=== PATIENT | female | born 1985 | race African-American/Black ===

== ENCOUNTER 2021-05-10 09:41 | Day surgery (SDC) | payer OTHER ==
[2021-05-09 14:48] VITALS: BMI 44.1
[2021-05-10] MEDS ORDERED: KETAMINE HCL 500 MG/10 ML VIAL ONE (11:34)
[2021-05-10 12:18] VITALS: TEMP 97.5
[2021-05-10 13:32] VITALS: BP 105/67
[2021-05-10 13:34] VITALS: PULSE 61
== END 2021-05-10 13:15 ==
LOC: FECT 09:41
PROVIDERS: ATTEND Psychiatry & Neurology Psychiatry
PROC: GZB4ZZZ Other Electroconvulsive Therapy (ICD-10-PCS; principal; 2021-05-10 11:00)
DX: F25.9 Schizoaffective disorder, unspecified (principal)
CPT/HCPCS: 84703; 90870; 94760

== ENCOUNTER 2021-05-11 06:24 | Day surgery (SDC) | payer OTHER ==
[2021-05-10 11:36] VITALS: BMI 44.1
[2021-05-11] MEDS ORDERED: KETAMINE HCL 500 MG/10 ML VIAL ONE (08:03)
[2021-05-11 10:20] VITALS: TEMP 98.4
[2021-05-11 10:21] VITALS: BP 137/89; PULSE 69
[2021-05-12 18:07] LABS: SARS-CoV-2 NAA Not Detected (Not Detected)
== END 2021-05-11 09:30 | disposition home or self-care (01) ==
LOC: FECT 06:24
PROVIDERS: ATTEND Psychiatry & Neurology Psychiatry
PROC: GZB4ZZZ Other Electroconvulsive Therapy (ICD-10-PCS; principal; 2021-05-11 08:30)
DX: F25.0 Schizoaffective disorder, bipolar type (principal)
CPT/HCPCS: 90870; 94760; C9803; U0003; U0005

== ENCOUNTER 2021-05-14 08:33 | Day surgery (SDC) | payer OTHER ==
[2021-05-10 11:58] VITALS: BMI 44.1
[2021-05-14] MEDS ORDERED: KETAMINE HCL 500 MG/10 ML VIAL ONE (09:13)
[2021-05-14 10:02] VITALS: TEMP 97.8
[2021-05-14 10:59] VITALS: BP 109/68; PULSE 64
[2021-05-15 11:12] LABS: SARS-CoV-2 NAA Not Detected (Not Detected)
== END 2021-05-14 11:00 ==
LOC: FECT 08:33
PROVIDERS: ATTEND Psychiatry & Neurology Psychiatry
PROC: GZB4ZZZ Other Electroconvulsive Therapy (ICD-10-PCS; principal; 2021-05-14 10:00)
DX: F25.0 Schizoaffective disorder, bipolar type (principal)
CPT/HCPCS: 84703; 90870; 94760; C9803; U0003; U0005

== ENCOUNTER 2021-05-17 08:14 | Day surgery (SDC) | payer OTHER ==
[2021-05-11 08:41] VITALS: BMI 44.1
[2021-05-17] MEDS ORDERED: KETAMINE HCL 500 MG/10 ML VIAL ONE (09:41)
[2021-05-17 10:59] VITALS: TEMP 98.2
[2021-05-17 11:19] VITALS: BP 122/74; PULSE 61
== END 2021-05-17 11:21 | disposition home or self-care (01) ==
LOC: FECT 08:14
PROVIDERS: ATTEND Psychiatry & Neurology Psychiatry
PROC: GZB4ZZZ Other Electroconvulsive Therapy (ICD-10-PCS; principal; 2021-05-17 09:30)
DX: F25.9 Schizoaffective disorder, unspecified (principal)
CPT/HCPCS: 90870; 94760

== ENCOUNTER 2021-05-18 07:00 | Day surgery (SDC) | payer OTHER ==
[2021-05-14 08:15] VITALS: BMI 44.1
[2021-05-18] MEDS ORDERED: KETAMINE HCL 500 MG/10 ML VIAL ONE (08:15)
[2021-05-18 08:50] VITALS: TEMP 98.6
[2021-05-18 09:36] VITALS: BP 136/90; PULSE 62
[2021-05-19 16:07] LABS: SARS-CoV-2 NAA Not Detected (Not Detected)
== END 2021-05-18 09:50 ==
LOC: FECT 07:00
PROVIDERS: ATTEND Psychiatry & Neurology Psychiatry
PROC: GZB4ZZZ Other Electroconvulsive Therapy (ICD-10-PCS; principal; 2021-05-18 08:30)
DX: F25.9 Schizoaffective disorder, unspecified (principal)
CPT/HCPCS: 81025; 90870; 94760; C9803; U0003; U0005

== ENCOUNTER 2021-05-21 08:45 | Day surgery (SDC) | payer OTHER ==
[2021-05-15 15:29] VITALS: BMI 44.1
[2021-05-21] MEDS ORDERED: KETAMINE HCL 500 MG/10 ML VIAL ONE (10:11)
[2021-05-21 11:35] VITALS: TEMP 98.2
[2021-05-21 11:51] VITALS: BP 118/76; PULSE 69
== END 2021-05-21 12:00 ==
LOC: FECT 08:45
PROVIDERS: ATTEND Psychiatry & Neurology Psychiatry
PROC: GZB4ZZZ Other Electroconvulsive Therapy (ICD-10-PCS; principal; 2021-05-21 09:30)
DX: F25.9 Schizoaffective disorder, unspecified (principal)
CPT/HCPCS: 90870; 94760

== ENCOUNTER 2021-05-24 07:38 | Day surgery (SDC) | payer OTHER ==
[2021-05-22 18:38] VITALS: BMI 44.1
[2021-05-24] MEDS ORDERED: KETAMINE HCL 500 MG/10 ML VIAL ONE (08:51)
[2021-05-24 09:58] VITALS: TEMP 97.7
[2021-05-24 10:55] VITALS: BP 117/73; PULSE 72
== END 2021-05-24 11:25 ==
LOC: FECT 07:38
PROVIDERS: ATTEND Psychiatry & Neurology Psychiatry
PROC: GZB4ZZZ Other Electroconvulsive Therapy (ICD-10-PCS; principal; 2021-05-24 09:00)
DX: F25.9 Schizoaffective disorder, unspecified (principal)
CPT/HCPCS: 84703; 90870; 94760

== ENCOUNTER 2021-05-25 06:23 | Day surgery (SDC) | payer OTHER ==
[2021-05-23 07:41] VITALS: BMI 44.1
[2021-05-25] MEDS ORDERED: KETAMINE HCL 500 MG/10 ML VIAL ONE (07:30)
[2021-05-25] MEDS ORDERED: KETOROLAC TROMETHAMINE 30 MG/1 ML VIAL ONE (07:34)
[2021-05-25] MEDS ORDERED: ONDANSETRON 4 MG/2 ML VIAL ONE (07:34)
[2021-05-25] MEDS ORDERED: LIDOCAINE HCL/PF 2% SDV 5ML VIAL ONE (07:34)
[2021-05-25] MEDS ORDERED: SUCCINYLCHOLINE CHLORIDE 200 MG/10 ML SYRINGE ONE (07:35)
[2021-05-25] MEDS ORDERED: PROPOFOL 20 ML ONE (07:35)
[2021-05-25] MEDS ORDERED: ACETAMINOPHEN 325 MG TABLET (FP) PO PRN (08:33)
[2021-05-25] MEDS ORDERED: ONDANSETRON 4 MG/2 ML VIAL IVPUSH PRN (08:33)
[2021-05-25 08:37] VITALS: PULSE 79; TEMP 98.1
[2021-05-25] MEDS ORDERED: LACTATED RINGERS SOLUTION 1,000 ML IV SCH (08:45)
[2021-05-25 09:03] VITALS: BP 111/70
[2021-05-26 11:12] LABS: SARS-CoV-2 NAA Not Detected (Not Detected)
== END 2021-05-25 09:03 | disposition home or self-care (01) ==
LOC: FECT 06:23
PROVIDERS: ATTEND Psychiatry & Neurology Psychiatry
PROC: GZB4ZZZ Other Electroconvulsive Therapy (ICD-10-PCS; principal; 2021-05-25 07:30)
DX: F25.9 Schizoaffective disorder, unspecified (principal)
CPT/HCPCS: 90870; 94760; C9803; U0003; U0005

== ENCOUNTER 2021-05-28 08:28 | Day surgery (SDC) | payer OTHER ==
[2021-05-28 08:58] VITALS: BMI 44.1
[2021-05-28] MEDS ORDERED: KETAMINE HCL 500 MG/10 ML VIAL ONE (09:43)
[2021-05-28 10:25] VITALS: TEMP 98.7
[2021-05-28 11:03] VITALS: BP 121/77; PULSE 66
[2021-05-29 13:12] LABS: SARS-CoV-2 NAA Not Detected (Not Detected)
== END 2021-05-28 11:30 ==
LOC: FECT 08:28
PROVIDERS: ATTEND Psychiatry & Neurology Psychiatry
PROC: GZB4ZZZ Other Electroconvulsive Therapy (ICD-10-PCS; principal; 2021-05-28 10:30)
DX: F25.0 Schizoaffective disorder, bipolar type (principal)
CPT/HCPCS: 84703; 90870; 94760; C9803; U0003; U0005

== ENCOUNTER 2021-05-31 09:04 | Day surgery (SDC) | payer OTHER ==
[2021-05-29 07:29] VITALS: BMI 44.1
[2021-05-31] MEDS ORDERED: KETAMINE HCL 200 MG/20 ML VIAL ONE (10:25)
[2021-05-31 12:35] VITALS: BP 112/69; PULSE 69; TEMP 98
== END 2021-05-31 12:30 ==
LOC: FECT 09:04
PROVIDERS: ATTEND Psychiatry & Neurology Psychiatry
PROC: GZB4ZZZ Other Electroconvulsive Therapy (ICD-10-PCS; principal; 2021-05-31 10:30)
DX: F31.9 Bipolar disorder, unspecified (principal)
CPT/HCPCS: 90870; 94760

== ENCOUNTER 2021-06-01 06:29 | Day surgery (SDC) | payer OTHER ==
[2021-05-29 07:34] VITALS: BMI 44.1
[2021-06-01] MEDS ORDERED: KETAMINE HCL 500 MG/10 ML VIAL ONE (08:03)
[2021-06-01 08:27] VITALS: TEMP 97.7
[2021-06-01 09:25] VITALS: BP 115/76; PULSE 62
[2021-06-02 16:11] LABS: SARS-CoV-2 NAA Not Detected (Not Detected)
== END 2021-06-01 09:45 | disposition home or self-care (01) ==
LOC: FECT 06:29
PROVIDERS: ATTEND Psychiatry & Neurology Psychiatry
PROC: GZB4ZZZ Other Electroconvulsive Therapy (ICD-10-PCS; principal; 2021-06-01 08:00)
DX: F25.9 Schizoaffective disorder, unspecified (principal)
CPT/HCPCS: 90870; 94760; C9803; U0003; U0005

== ENCOUNTER 2021-06-05 05:55 | Day surgery (SDC) | payer OTHER ==
[2021-06-05 07:18] VITALS: BMI 44.1
[2021-06-05] MEDS ORDERED: KETAMINE HCL 500 MG/10 ML VIAL ONE (07:43)
[2021-06-05 09:08] VITALS: TEMP 97.8
[2021-06-05 09:10] VITALS: BP 112/74; PULSE 61
[2021-06-06 10:08] LABS: SARS-CoV-2 NAA Not Detected (Not Detected)
== END 2021-06-05 10:15 ==
LOC: FECT 05:55
PROVIDERS: ATTEND Psychiatry & Neurology Psychiatry
PROC: GZB4ZZZ Other Electroconvulsive Therapy (ICD-10-PCS; principal; 2021-06-05 07:57)
DX: F25.0 Schizoaffective disorder, bipolar type (principal)
CPT/HCPCS: 81025; 90870; 94760; C9803; U0003; U0005

== ENCOUNTER 2021-06-07 05:48 | Day surgery (SDC) | payer OTHER ==
[2021-06-07 06:51] VITALS: BMI 44.1
[2021-06-07] MEDS ORDERED: KETAMINE HCL 500 MG/10 ML VIAL ONE (07:38)
[2021-06-07 08:50] VITALS: BP 119/72; PULSE 80; TEMP 97.6
== END 2021-06-07 09:50 ==
LOC: FECT 05:48
PROVIDERS: ATTEND Psychiatry & Neurology Psychiatry
PROC: GZB4ZZZ Other Electroconvulsive Therapy (ICD-10-PCS; principal; 2021-06-07 08:05)
DX: F25.0 Schizoaffective disorder, bipolar type (principal)
CPT/HCPCS: 90870; 94760

== ENCOUNTER 2021-06-11 08:07 | Day surgery (SDC) | payer OTHER ==
[2021-06-05 16:39] VITALS: BMI 33.6
[2021-06-11] MEDS ORDERED: SUCCINYLCHOLINE CHLORIDE 200 MG/10 ML SYRINGE ONE (09:31)
[2021-06-11] MEDS ORDERED: KETAMINE HCL 500 MG/10 ML VIAL ONE (09:33)
[2021-06-11 10:48] VITALS: TEMP 98.1
[2021-06-11 11:31] VITALS: BP 110/72; PULSE 78
[2021-06-12 12:09] LABS: SARS-CoV-2 NAA Not Detected (Not Detected)
== END 2021-06-11 11:41 | disposition home or self-care (01) ==
LOC: FECT 08:07
PROVIDERS: ATTEND Psychiatry & Neurology Psychiatry
PROC: GZB4ZZZ Other Electroconvulsive Therapy (ICD-10-PCS; principal; 2021-06-11 09:47)
DX: F25.0 Schizoaffective disorder, bipolar type (principal)
CPT/HCPCS: 84703; 90870; 94760; C9803; U0003; U0005

== ENCOUNTER 2021-06-14 08:19 | Day surgery (SDC) | payer OTHER ==
[2021-06-08 17:23] VITALS: BMI 44.1
[2021-06-14 08:39] VITALS: TEMP 97.2
[2021-06-14] MEDS ORDERED: KETOROLAC TROMETHAMINE 30 MG/1 ML VIAL ONE (09:37)
[2021-06-14] MEDS ORDERED: ONDANSETRON 4 MG/2 ML VIAL ONE (09:42)
[2021-06-14] MEDS ORDERED: KETAMINE HCL 500 MG/10 ML VIAL ONE (10:11)
[2021-06-14 11:22] VITALS: BP 110/71; PULSE 60
[2021-06-14] MEDS ORDERED: ACETAMINOPHEN 325 MG TABLET (FP) PO PRN (12:00)
[2021-06-15 13:08] LABS: SARS-CoV-2 NAA Not Detected (Not Detected)
== END 2021-06-14 11:45 ==
LOC: FECT 08:19
PROVIDERS: ATTEND Psychiatry & Neurology Psychiatry
PROC: GZB4ZZZ Other Electroconvulsive Therapy (ICD-10-PCS; principal; 2021-06-14 10:00)
DX: F25.9 Schizoaffective disorder, unspecified (principal)
CPT/HCPCS: 90870; 94760; C9803; U0003; U0005

== ENCOUNTER 2021-06-15 06:00 | Day surgery (SDC) | payer OTHER ==
[2021-06-14 09:46] VITALS: BMI 44.1
[2021-06-15] MEDS ORDERED: KETAMINE HCL 500 MG/10 ML VIAL ONE (07:22)
[2021-06-15 08:42] VITALS: TEMP 97.7
[2021-06-15 08:59] VITALS: BP 122/84; PULSE 69
== END 2021-06-15 09:05 | disposition home or self-care (01) ==
LOC: FECT 06:00
PROVIDERS: ATTEND Psychiatry & Neurology Psychiatry
PROC: GZB4ZZZ Other Electroconvulsive Therapy (ICD-10-PCS; principal; 2021-06-15 07:37)
DX: F25.9 Schizoaffective disorder, unspecified (principal)
CPT/HCPCS: 81025; 90870; 94760

== ENCOUNTER 2021-06-18 07:28 | Day surgery (SDC) | payer OTHER ==
[2021-06-18 08:35] VITALS: BMI 43.3
[2021-06-18] MEDS ORDERED: KETAMINE HCL 500 MG/10 ML VIAL ONE (09:19)
[2021-06-18 10:17] VITALS: TEMP 98.6
[2021-06-18 10:34] VITALS: BP 120/85; PULSE 81
[2021-06-19 13:08] LABS: SARS-CoV-2 NAA Not Detected (Not Detected)
== END 2021-06-18 10:37 | disposition home or self-care (01) ==
LOC: FECT 07:28
PROVIDERS: ATTEND Psychiatry & Neurology Psychiatry
PROC: GZB4ZZZ Other Electroconvulsive Therapy (ICD-10-PCS; principal; 2021-06-18 09:35)
DX: F25.0 Schizoaffective disorder, bipolar type (principal)
CPT/HCPCS: 84703; 90870; 94760; C9803; U0003; U0005

== ENCOUNTER 2021-06-21 08:14 | Day surgery (SDC) | payer OTHER ==
[2021-06-19 17:44] VITALS: BMI 43.2
[2021-06-21] MEDS ORDERED: KETAMINE HCL 500 MG/10 ML VIAL ONE (09:12)
[2021-06-21] MEDS ORDERED: ONDANSETRON 4 MG/2 ML VIAL ONE (09:18)
[2021-06-21] MEDS ORDERED: KETOROLAC TROMETHAMINE 30 MG/1 ML VIAL ONE (09:18)
[2021-06-21] MEDS ORDERED: LIDOCAINE HCL/PF 2% SDV 5ML VIAL ONE (09:27)
[2021-06-21 11:48] VITALS: BP 117/71; PULSE 63; TEMP 97.8
== END 2021-06-21 11:20 | disposition home or self-care (01) ==
LOC: FECT 08:14
PROVIDERS: ATTEND Psychiatry & Neurology Psychiatry
PROC: GZB4ZZZ Other Electroconvulsive Therapy (ICD-10-PCS; principal; 2021-06-21 09:30)
DX: F25.9 Schizoaffective disorder, unspecified (principal)
CPT/HCPCS: 84703; 90870; 94760

== ENCOUNTER 2021-06-22 06:12 | Day surgery (SDC) | payer OTHER ==
[2021-06-21 07:07] VITALS: BMI 43.2
[2021-06-22] MEDS ORDERED: KETAMINE HCL 500 MG/10 ML VIAL ONE (08:12)
[2021-06-22] MEDS ORDERED: GLYCOPYRROLATE 0.2 MG/1 ML VIAL ONE (09:00)
[2021-06-22] MEDS ORDERED: LACTATED RINGERS SOLUTION 1,000 ML IV SCH (09:30)
[2021-06-22 10:16] VITALS: BP 118/80; PULSE 79; TEMP 98
[2021-06-23 18:08] LABS: SARS-CoV-2 NAA Not Detected (Not Detected)
== END 2021-06-22 09:45 ==
LOC: FECT 06:12
PROVIDERS: ATTEND Psychiatry & Neurology Psychiatry
PROC: GZB4ZZZ Other Electroconvulsive Therapy (ICD-10-PCS; principal; 2021-06-22 08:28)
DX: F25.9 Schizoaffective disorder, unspecified (principal)
CPT/HCPCS: 90870; 94760; C9803; U0003; U0005

== ENCOUNTER 2021-06-25 08:42 | Day surgery (SDC) | payer OTHER ==
[2021-06-21 07:11] VITALS: BMI 43.2
[2021-06-25 09:32] VITALS: TEMP 98.2
[2021-06-25] MEDS ORDERED: KETAMINE HCL 500 MG/10 ML VIAL ONE (10:33)
[2021-06-25 11:56] VITALS: BP 120/89; PULSE 65
[2021-06-26 14:09] LABS: SARS-CoV-2 NAA Not Detected (Not Detected)
== END 2021-06-25 11:55 ==
LOC: FECT 08:42
PROVIDERS: ATTEND Psychiatry & Neurology Psychiatry
PROC: GZB4ZZZ Other Electroconvulsive Therapy (ICD-10-PCS; principal; 2021-06-25 10:38)
DX: F25.0 Schizoaffective disorder, bipolar type (principal)
CPT/HCPCS: 84703; 90870; 94760; C9803; U0003; U0005

== ENCOUNTER 2021-06-28 08:57 | Day surgery (SDC) | payer OTHER ==
[2021-06-22 15:57] VITALS: BMI 43.2
[2021-06-28] MEDS ORDERED: KETAMINE HCL 500 MG/10 ML VIAL ONE (10:33)
[2021-06-28 11:59] VITALS: TEMP 98.1
[2021-06-28 12:01] VITALS: BP 121/67; PULSE 65
== END 2021-06-28 12:00 | disposition home or self-care (01) ==
LOC: FECT 08:57
PROVIDERS: ATTEND Psychiatry & Neurology Psychiatry
PROC: GZB4ZZZ Other Electroconvulsive Therapy (ICD-10-PCS; principal; 2021-06-28 10:44)
DX: F20.9 Schizophrenia, unspecified (principal)
CPT/HCPCS: 90870; 94760

== ENCOUNTER 2021-07-09 08:26 | Day surgery (SDC) | payer OTHER ==
[2021-06-25 08:39] VITALS: BMI 43.2
[2021-07-09] MEDS ORDERED: KETAMINE HCL 500 MG/10 ML VIAL ONE (09:22)
[2021-07-09 14:04] VITALS: BP 136/75; PULSE 76
[2021-07-09 14:10] VITALS: TEMP 98
[2021-07-10 13:09] LABS: SARS-CoV-2 NAA Not Detected (Not Detected)
== END 2021-07-09 11:35 ==
LOC: FECT 08:26
PROVIDERS: ATTEND Psychiatry & Neurology Psychiatry
PROC: GZB4ZZZ Other Electroconvulsive Therapy (ICD-10-PCS; principal; 2021-07-09 09:40)
DX: F25.0 Schizoaffective disorder, bipolar type (principal)
CPT/HCPCS: 84703; 90870; 94760; C9803-CS; U0003; U0005

== ENCOUNTER 2021-07-12 08:27 | Day surgery (SDC) | payer OTHER ==
[2021-07-10 09:20] VITALS: BMI 43.2
[2021-07-12] MEDS ORDERED: KETAMINE HCL 500 MG/10 ML VIAL ONE (09:57)
[2021-07-12 11:08] VITALS: TEMP 98.4
[2021-07-12 12:53] VITALS: BP 121/87; PULSE 77
[2021-07-13 15:07] LABS: SARS-CoV-2 NAA Not Detected (Not Detected)
== END 2021-07-12 11:30 ==
LOC: FECT 08:27
PROVIDERS: ATTEND Psychiatry & Neurology Psychiatry
PROC: GZB4ZZZ Other Electroconvulsive Therapy (ICD-10-PCS; principal; 2021-07-12 10:06)
DX: F25.9 Schizoaffective disorder, unspecified (principal)
CPT/HCPCS: 90870; 94760; C9803-CS; U0003; U0005

== ENCOUNTER 2021-07-17 07:42 | Day surgery (SDC) | payer OTHER ==
[2021-07-10 09:35] VITALS: BMI 43.2
[2021-07-17] MEDS ORDERED: KETAMINE HCL 500 MG/10 ML VIAL ONE (08:43)
[2021-07-17] MEDS ORDERED: SUCCINYLCHOLINE CHLORIDE 200 MG/10 ML SYRINGE ONE (08:53)
[2021-07-17] MEDS ORDERED: METOPROLOL TARTRATE 5 MG/5 ML VIAL ONE (09:04)
[2021-07-17] MEDS ORDERED: PROPOFOL 20 ML ONE ×2 (09:08→09:46)
[2021-07-17] MEDS ORDERED: GLYCOPYRROLATE 0.2 MG/1 ML VIAL ONE (09:46)
[2021-07-17 10:12] VITALS: TEMP 98
[2021-07-17] MEDS ORDERED: LIDOCAINE HCL/PF 2% SDV 5ML VIAL ONE (10:21)
[2021-07-17 10:33] VITALS: BP 110/67; PULSE 67
[2021-07-17] MEDS ORDERED: ONDANSETRON 4 MG/2 ML VIAL IVPUSH PRN (11:35)
[2021-07-17] MEDS ORDERED: LACTATED RINGERS SOLUTION 1,000 ML IV SCH (11:45)
[2021-07-18 15:08] LABS: SARS-CoV-2 NAA Not Detected (Not Detected)
== END 2021-07-17 11:00 ==
LOC: FECT 07:42
PROVIDERS: ATTEND Psychiatry & Neurology Psychiatry
PROC: GZB4ZZZ Other Electroconvulsive Therapy (ICD-10-PCS; principal; 2021-07-17 09:00)
DX: F20.9 Schizophrenia, unspecified (principal)
CPT/HCPCS: 81025; 90870; 94760; C9803-CS; U0003; U0005

== ENCOUNTER 2021-07-19 07:21 | Day surgery (SDC) | payer OTHER ==
[2021-07-10 09:40] VITALS: BMI 43.2
[2021-07-19] MEDS ORDERED: KETAMINE HCL 500 MG/10 ML VIAL ONE (08:37)
[2021-07-19 09:45] VITALS: TEMP 97.8
[2021-07-19 10:52] VITALS: BP 116/72; PULSE 65
[2021-07-20 16:08] LABS: SARS-CoV-2 NAA Not Detected (Not Detected)
== END 2021-07-19 10:15 | disposition home or self-care (01) ==
LOC: FECT 07:21
PROVIDERS: ATTEND Psychiatry & Neurology Psychiatry
PROC: GZB4ZZZ Other Electroconvulsive Therapy (ICD-10-PCS; principal; 2021-07-19 09:00)
DX: F20.9 Schizophrenia, unspecified (principal)
CPT/HCPCS: 90870; 94760; C9803-CS; U0003; U0005

== ENCOUNTER 2021-07-23 07:15 | Day surgery (SDC) | payer OTHER ==
[2021-07-18 16:59] VITALS: BMI 43.2
[2021-07-23] MEDS ORDERED: KETAMINE HCL 200 MG/20 ML VIAL ONE (08:53)
[2021-07-23 10:03] VITALS: TEMP 98.2
[2021-07-23 10:22] VITALS: BP 110/65; PULSE 64
[2021-07-24 13:07] LABS: SARS-CoV-2 NAA Not Detected (Not Detected)
== END 2021-07-23 09:25 ==
LOC: FECT 07:15
PROVIDERS: ATTEND Psychiatry & Neurology Psychiatry
PROC: GZB4ZZZ Other Electroconvulsive Therapy (ICD-10-PCS; principal; 2021-07-23 09:02)
DX: F25.1 Schizoaffective disorder, depressive type (principal)
CPT/HCPCS: 84703; 90870; 94760; C9803-CS; U0003; U0005

== ENCOUNTER 2021-07-26 06:12 | Day surgery (SDC) | payer OTHER ==
[2021-07-23 07:22] VITALS: BMI 43.2
[2021-07-26] MEDS ORDERED: KETAMINE HCL 500 MG/10 ML VIAL ONE (07:43)
[2021-07-26 09:07] VITALS: PULSE 71; TEMP 97.8
[2021-07-26 09:59] VITALS: BP 125/71
[2021-07-27 16:10] LABS: SARS-CoV-2 NAA Not Detected (Not Detected)
== END 2021-07-26 10:00 | disposition home or self-care (01) ==
LOC: FECT 06:12
PROVIDERS: ATTEND Psychiatry & Neurology Psychiatry
PROC: GZB4ZZZ Other Electroconvulsive Therapy (ICD-10-PCS; principal; 2021-07-26 08:16)
DX: F20.9 Schizophrenia, unspecified (principal)
CPT/HCPCS: 90870; 94760; C9803-CS; U0003; U0005

== ENCOUNTER 2021-07-30 06:48 | Day surgery (SDC) | payer OTHER ==
[2021-07-24 14:47] VITALS: BMI 43.2
[2021-07-30] MEDS ORDERED: KETAMINE HCL 500 MG/10 ML VIAL ONE (09:40)
[2021-07-30 10:44] VITALS: TEMP 97.8
[2021-07-30 11:22] VITALS: BP 114/71; PULSE 64
[2021-07-31 13:08] LABS: SARS-CoV-2 NAA Not Detected (Not Detected)
== END 2021-07-30 11:24 | disposition home or self-care (01) ==
LOC: FECT 06:48
PROVIDERS: ATTEND Psychiatry & Neurology Psychiatry
PROC: GZB4ZZZ Other Electroconvulsive Therapy (ICD-10-PCS; principal; 2021-07-30 09:57)
DX: F25.1 Schizoaffective disorder, depressive type (principal)
CPT/HCPCS: 84703; 90870; 94760; C9803-CS; U0003; U0005

== ENCOUNTER 2021-08-02 06:23 | Day surgery (SDC) | payer OTHER ==
[2021-07-24 14:40] VITALS: BMI 43.2
[2021-08-02] MEDS ORDERED: KETAMINE HCL 200 MG/20 ML VIAL ONE (09:27)
[2021-08-02] MEDS ORDERED: SUCCINYLCHOLINE CHLORIDE 200 MG/10 ML SYRINGE ONE (09:59)
[2021-08-02 10:27] VITALS: TEMP 98.1
[2021-08-02 10:56] VITALS: BP 118/78; PULSE 66
[2021-08-03 14:09] LABS: SARS-CoV-2 NAA Not Detected (Not Detected)
== END 2021-08-02 11:10 ==
LOC: FECT 06:23
PROVIDERS: ATTEND Psychiatry & Neurology Psychiatry
PROC: GZB4ZZZ Other Electroconvulsive Therapy (ICD-10-PCS; principal; 2021-08-02 09:38)
DX: F20.9 Schizophrenia, unspecified (principal)
CPT/HCPCS: 90870; 94760; C9803-CS; U0003; U0005

== ENCOUNTER 2021-08-06 05:59 | Day surgery (SDC) | payer OTHER ==
[2021-08-01 10:07] VITALS: BMI 43.2
[2021-08-06 06:50] VITALS: TEMP 98.7
[2021-08-06] MEDS ORDERED: KETAMINE HCL 500 MG/10 ML VIAL ONE (07:54)
[2021-08-06 09:28] VITALS: BP 112/77; PULSE 64
[2021-08-07 12:11] LABS: SARS-CoV-2 NAA Not Detected (Not Detected)
== END 2021-08-06 10:00 ==
LOC: FECT 05:59
PROVIDERS: ATTEND Psychiatry & Neurology Psychiatry
PROC: GZB4ZZZ Other Electroconvulsive Therapy (ICD-10-PCS; principal; 2021-08-06 08:07)
DX: F25.1 Schizoaffective disorder, depressive type (principal)
CPT/HCPCS: 81025; 90870; 94760; C9803-CS; U0003; U0005

== ENCOUNTER 2021-08-09 08:00 | Day surgery (SDC) | payer OTHER ==
[2021-08-01 10:17] VITALS: BMI 43.2
[2021-08-09] MEDS ORDERED: KETAMINE HCL 500 MG/10 ML VIAL ONE (10:28)
[2021-08-09] MEDS ORDERED: KETOROLAC TROMETHAMINE 30 MG/1 ML VIAL ONE (10:46)
[2021-08-09 11:31] VITALS: TEMP 97.9
[2021-08-09 11:53] VITALS: BP 121/79; PULSE 66
[2021-08-10 11:08] LABS: SARS-CoV-2 NAA Not Detected (Not Detected)
== END 2021-08-09 12:00 ==
LOC: FECT 08:00
PROVIDERS: ATTEND Psychiatry & Neurology Psychiatry
PROC: GZB4ZZZ Other Electroconvulsive Therapy (ICD-10-PCS; principal; 2021-08-09 10:42)
DX: F25.9 Schizoaffective disorder, unspecified (principal)
CPT/HCPCS: 90870; 94760; C9803-CS; U0003; U0005

== ENCOUNTER 2021-08-13 06:15 | Day surgery (SDC) | payer OTHER ==
[2021-08-06 15:43] VITALS: BMI 43.2
[2021-08-13 10:42] VITALS: TEMP 98.4
[2021-08-13 11:02] VITALS: BP 110/77; PULSE 69
[2021-08-14 15:09] LABS: SARS-CoV-2 NAA Not Detected (Not Detected)
== END 2021-08-13 11:00 ==
LOC: FECT 06:15
PROVIDERS: ATTEND Psychiatry & Neurology Psychiatry
PROC: GZB4ZZZ Other Electroconvulsive Therapy (ICD-10-PCS; principal; 2021-08-13 09:46)
DX: F25.1 Schizoaffective disorder, depressive type (principal)
CPT/HCPCS: 84703; 90870; 94760; C9803-CS; U0003; U0005

== ENCOUNTER 2021-08-16 08:16 | Day surgery (SDC) | payer OTHER ==
[2021-08-06 15:55] VITALS: BMI 43.2
[2021-08-16] MEDS ORDERED: KETAMINE HCL 500 MG/10 ML VIAL ONE (10:10)
[2021-08-16 11:25] VITALS: BP 115/82; PULSE 75; TEMP 98
[2021-08-17 20:12] LABS: SARS-CoV-2 NAA Not Detected (Not Detected)
== END 2021-08-16 11:50 ==
LOC: FECT 08:16
PROVIDERS: ATTEND Psychiatry & Neurology Psychiatry
PROC: GZB4ZZZ Other Electroconvulsive Therapy (ICD-10-PCS; principal; 2021-08-16 10:24)
DX: F31.9 Bipolar disorder, unspecified (principal)
CPT/HCPCS: 90870; 94760; C9803-CS; U0003; U0005

== ENCOUNTER 2021-08-20 07:21 | Day surgery (SDC) | payer OTHER ==
[2021-08-14 06:46] VITALS: BMI 43.2
[2021-08-20] MEDS ORDERED: KETAMINE HCL 500 MG/10 ML VIAL ONE (09:17)
[2021-08-20 12:25] VITALS: TEMP 97.8
[2021-08-20 12:30] VITALS: BP 128/86; PULSE 65
[2021-08-21 16:17] LABS: SARS-CoV-2 NAA Not Detected (Not Detected)
== END 2021-08-20 11:15 | disposition home or self-care (01) ==
LOC: FECT 07:21
PROVIDERS: ATTEND Psychiatry & Neurology Psychiatry
PROC: GZB4ZZZ Other Electroconvulsive Therapy (ICD-10-PCS; principal; 2021-08-20 09:31)
DX: F25.1 Schizoaffective disorder, depressive type (principal)
CPT/HCPCS: 84703; 90870; 94760; C9803-CS; U0003; U0005

== ENCOUNTER 2021-08-23 06:14 | Day surgery (SDC) | payer OTHER ==
[2021-08-20 11:56] VITALS: BMI 43.2
[2021-08-23 08:47] VITALS: TEMP 97.7
[2021-08-23 09:43] VITALS: BP 105/75; PULSE 69
[2021-08-24 12:12] LABS: SARS-CoV-2 NAA Not Detected (Not Detected)
== END 2021-08-23 10:00 ==
LOC: FECT 06:14
PROVIDERS: ATTEND Psychiatry & Neurology Psychiatry
PROC: GZB4ZZZ Other Electroconvulsive Therapy (ICD-10-PCS; principal; 2021-08-23 08:15)
DX: F25.1 Schizoaffective disorder, depressive type (principal)
CPT/HCPCS: 90870; 94760; C9803-CS; U0003; U0005